=== PATIENT | female | born 1995 | race Asian ===

== ENCOUNTER 2021-03-09 15:33 | Emergency (ER) | payer OTHER | END 2021-03-09 18:38 | disposition home or self-care (01) | LOC: CSHERS 15:33 | DX: K21.9 Gastro-esophageal reflux disease without esophagitis (principal); R07.89 Other chest pain | CPT/HCPCS: 71045; 93005 ==

== ENCOUNTER 2021-11-15 17:40 | Emergency (ER) | payer OTHER, SELFPAY ==
[2021-11-15 18:49] LABS: #Basophils 0.1 10x3/uL (0.0-0.2); #Eosinphils 0.2 10x3/uL (0.0-0.5); #Monocytes 0.5 10x3/uL (0.0-1.1); #Neutrophils 5.2 10x3/uL (1.5-8.4); %Eosinophils 2.2 % (0.0-6.0); %Monocytes 6.6 % (0.0-10.0); %Neutrophils 67.9 % (40.0-75.0); Hemoglobin 12.2 g/dL (12.0-15.5); Mean Corpuscular Hemoglobin 29.5 pg (27.0-33.0); Mean Corpuscular Volume 86.9 fl (81.6-98.3); Mean Platelet Volume 11.2 fl (7.4-10.4); Platelet Count 297 10x3/uL (150-450); RBC Distribution Width 12.2 % (11.5-14.5); Red Blood Cell (RBC) Count 4.13 10x6/uL (3.90-5.03); White Blood Cell (WBC) Count 7.6 10x3/uL (3.5-10.5)
[2021-11-15 19:00] LABS: ALT (SGPT) 22 U/L (8-55); AST (SGOT) 16 U/L (5-34); Albumin 4.3 g/dL (3.5-5.0); Alkaline Phosphatase 45 U/L (40-110); Anion Gap 11 mmol/L (10-20); BUN (Urea Nitrogen) 12 mg/dL (7.0-18.7); Bilirubin, Total 0.3 mg/dL (0.2-1.2); Calc. Creatinine Clearance 0 mL/min (70-130); Carbon Dioxide 24 mmol/L (22-29); Chloride 108 mmol/L (98-107); Estimated GFR 110; Glucose 111 mg/dL (70-105); Potassium 3.7 mmol/L (3.5-5.1); Protein, Total 7.3 g/dL (6.0-8.3); Sodium 139 mmol/L (136-145)
== END 2021-11-15 20:29 | disposition home or self-care (01) ==
LOC: CSHERS 17:40
DX: O20.0 Threatened abortion (principal); Z3A.01 Less than 8 weeks gestation of pregnancy
CPT/HCPCS: 36415; 76856; 80053; 84702; 85025; 86900; 86901